=== PATIENT | female | born 1970 | race Caucasian/White ===

== ENCOUNTER 2017-11-20 07:25 | Day surgery (SDC) | payer BC ==
[2017-11-20] MEDS ORDERED: CLINDAMYCIN 600 MG/D5W (PMX) 50 ML IVPB (09:00)
[2017-11-20] MEDS ORDERED: SOD CHLORIDE 0.9% 1,000 ML IV (09:00)
[2017-11-20] MEDS ORDERED: MEPERIDINE 100 MG INJ (10:52)
[2017-11-20] MEDS ORDERED: GLYCOPYRROLATE 0.4 MG INJ ×2 (10:52→11:46)
[2017-11-20] MEDS ORDERED: PROPOFOL 20 ML (10:52)
[2017-11-20] MEDS ORDERED: ROCURONIUM 50 MG INJ (10:52)
[2017-11-20] MEDS ORDERED: NEOSTIGMINE 3 MG/3 ML SYRINGE ×2 (10:52→11:46)
[2017-11-20] MEDS ORDERED: SUCCINYLCHOLINE CHLORIDE 100 MG/5 ML SYG IV (10:52)
[2017-11-20] MEDS ORDERED: LIDOCAINE 2% (SDV) 5 ML INJ (10:52)
[2017-11-20] MEDS ORDERED: ATROPINE 1 MG/10 ML SYRINGE (11:13)
[2017-11-20] MEDS ORDERED: METOCLOPRAMIDE 10 MG INJ (11:18)
[2017-11-20] MEDS ORDERED: ONDANSETRON 4 MG INJ (11:18)
[2017-11-20] MEDS: BUPIVACAINE 0.25%/EPI (SDV) 30 ML INJ (11:25)
[2017-11-20] MEDS ORDERED: hydrALAzine 20 MG INJ IV (12:30)
[2017-11-20] MEDS ORDERED: OXYCODONE/ACETAMINOPHEN (5/325) TAB PO ×2 (12:30)
[2017-11-20] MEDS ORDERED: METOCLOPRAMIDE 10 MG INJ IV (12:30)
[2017-11-20] MEDS ORDERED: LABETALOL HCL 20MG INJ IV (12:30)
[2017-11-20] MEDS ORDERED: FENTAnyl 50 MCG/ML VIAL IV ×3 (12:30)
[2017-11-20] MEDS ORDERED: DIPHENHYDRAMINE 50 MG INJ IV (12:30)
[2017-11-20] MEDS ORDERED: MIDAZOLAM 1 MG/ML 2 ML INJ IV (12:30)
[2017-11-20] MEDS ORDERED: morphine 2 MG INJ IV (12:30)
[2017-11-20] MEDS ORDERED: HYDROCODONE/APAP (5/325) TAB PO ×2 (12:30)
[2017-11-20] MEDS ORDERED: KETOROLAC 30 MG INJ IV (12:30)
[2017-11-20] MEDS ORDERED: HYDROmorphONE (0.2 MG/ML) 10ML SYG IV ×2 (12:30)
[2017-11-20] MEDS ORDERED: ONDANSETRON 4 MG INJ IV ×2 (12:30)
[2017-11-20] MEDS ORDERED: MEPERIDINE 25 MG INJ IV (12:30)
[2017-11-20] MEDS ORDERED: IBUPROFEN 600 MG TAB PO (12:30)
[2017-11-20] MEDS ORDERED: EPHEDrine SULFATE 50 MG/5 ML SYG IV (12:30)
[2017-11-20] MEDS: HYDROmorphONE (0.2 MG/ML) 10ML SYG IV (12:37)
== END 2017-11-20 15:34 | disposition home or self-care (01) ==
LOC: SDS 07:25
DX: K80.10 Calculus of gallbladder with chronic cholecystitis without obstruction (principal)
CPT/HCPCS: 47562; 84703; 88304

== ENCOUNTER 2017-12-11 11:09 | Emergency (ER) | payer BC ==
[2017-12-11 12:40] LABS: ADD MAN DIFF? NO
[2017-12-11 12:43] LABS: BASOPHIL # 0.1 10^3/ul (0.0-0.1); BASOPHILS % 0.7 % (0.0-2.0); EOSINOPHILS # 0.2 10^3/ul (0.0-0.5); EOSINOPHILS % 2.2 % (0.0-7.0); HEMATOCRIT 38.8 % (37.0-47.0); HEMOGLOBIN 13.4 g/dl (12.0-16.0); LYMPHOCYTES # 2.9 10^3/ul (0.8-2.9); LYMPHOCYTES % 43.3 % (15.0-51.0); MEAN CORPUSCULAR HGB CONC 34.5 g/dl (32.0-37.0); MEAN PLATELET VOLUME 9.3 fl (7.4-10.4); MONOCYTE # 0.5 10^3/ul (0.3-0.9); MONOCYTES % 7.2 % (0.0-11.0); NEUTROPHIL # 3.1 10^3/ul (1.6-7.5); NEUTROPHILS % 46.5 % (39.0-77.0); PLATELET COUNT 381 10^3/UL (140-415); RED BLOOD COUNT 4.62 10^6/ul (4.20-5.40); RED CELL DISTRIBUTION WIDTH 12.8 % (11.5-14.5)
[2017-12-11 12:43] LABS: WHITE BLOOD COUNT 6.8 10^3/ul (4.8-10.8)
[2017-12-11 12:59] LABS: ALANINE AMINOTRANSFERASE 30 IU/L (13-69); ALBUMIN 4.6 g/dl (3.3-4.9); ALBUMIN/GLOBULIN RATIO 1.06; ALKALINE PHOSPHATASE 90 IU/L (42-121); ANION GAP 17 (8-16); ASPARTATE AMINO TRANSFERASE 26 IU/L (15-46); BILIRUBIN,INDIRECT 0.4 mg/dl (0-1.1); BILIRUBIN,TOTAL 0.4 mg/dl (0.2-1.3); BLOOD UREA NITROGEN 10 mg/dl (7-20); CALCIUM 9.9 mg/dl (8.4-10.2); CARBON DIOXIDE 29 mmol/L (21-31); CHLORIDE 101 mmol/L (97-110); CREATININE 0.77 mg/dl (0.44-1.00); GLUCOSE 94 mg/dl (70-220); POTASSIUM 4.3 mmol/L (3.5-5.1); SODIUM 143 mmol/L (135-144); TOTAL PROTEIN 8.9 g/dl (6.1-8.1)
== END 2017-12-11 14:01 | disposition home or self-care (01) ==
LOC: FTE 11:09
DX: F41.9 Anxiety disorder, unspecified (principal)
CPT/HCPCS: 36415; 71045; 80053; 85025; 93005; 99285-25